=== PATIENT | male | born 1995 | race American Indian/Alaskan Native ===

== ENCOUNTER 2020-03-07 21:35 | Emergency (ER) | payer OTHER ==
[2020-03-07 22:06] VITALS: BP 136/58
[2020-03-07 22:28] LABS: Bilirubin,Urine NEG (Negative); Blood,Urine SM (Negative); Color,Urine Yellow (Yellow); Mucus,Urine 3+ /HPF
[2020-03-07] MEDS ORDERED: LIDOCAINE-MPF (1%) 10 MG/1 ML VIAL 5 ML INFILTRATI ONE (22:38)
[2020-03-07] MEDS ORDERED: AZITHROMYCIN 250 MG TAB PO ONE (22:38)
--- NOTE | 2020-03-07 22:45 | Emergency Department Report ---
ED General Adult HPI - General Chief complaint: Urogenital-Male Stated complaint: BURNING WHEN URINATING Time Seen by Provider: 03/07/20 22:20 Source: patient Mode of arrival: Ambulatory Limitations: No Limitations - History of Present Illness Initial comments: 24-year-old male present with chief complaint of dysuria, onset today. He believes he has an STI as he has had one before. Denies any penile discharge, abdominal pain, flank pain or any other symptoms. Onset gradual, mild severity, no modifying factors - Related Data Allergies Allergy/AdvReac Type Severity Reaction Status Date / Time No Known Allergies Allergy Unverified 03/07/20 21:58 ED Review of Systems ROS: Stated complaint: BURNING WHEN URINATING Other details as noted in HPI Comment: All other systems reviewed and negative Genitourinary: as per HPI ED Past Medical Hx - Past Medical History Previous Medical History?: No - Surgical History Past Surgical History?: No - Social History Smoking Status: Never Smoker Substance Use Type: None ED Physical Exam - General Limitations: No Limitations General appearance: alert, in no apparent distress - Head Head exam: Present: atraumatic, normocephalic - Eye Eye exam: Present: normal appearance, PERRL, EOMI - ENT ENT exam: Present: normal exam, normal orophraynx - Neck Neck exam: Present: normal inspection, full ROM - GI/Abdominal GI/Abdominal exam: Present: soft. Absent: distended, tenderness, guarding - Extremities Exam Extremities exam: Present: normal inspection, full ROM - Back Exam Back exam: Absent: CVA tenderness (R), CVA tenderness (L) - Neurological Exam Neurological exam: Present: alert, oriented X3, normal gait - Psychiatric Psychiatric exam: Present: normal affect, normal mood - Skin Skin exam: Present: warm, dry, intact, normal color ED Course Vital Signs 03/07/20 21:59 Temperature 98.6 F Pulse Rate 72 Respiratory 16 Rate Blood Pressure 136/58 O2 Sat by Pulse 98 Oximetry ED Medical Decision Making - Medical Decision Making Patient presenting with concerns of STI. Urinalysis will be sent. He will be treated empirically with Rocephin and azithromycin and referred for PCP follow- up. - Differential Diagnosis UTI, STI Critical care attestation.: If time is entered above; I have spent that time in minutes in the direct care of this critically ill patient, excluding procedure time. ED Disposition Clinical Impression: Urethritis Disposition: DC-01 TO HOME OR SELFCARE Is pt being admited?: No Condition: Good Instructions: Urethritis, Adult Referrals: DIONISIO BOLDEN MD [Staff Physician] - 3-5 Days Forms: STI Treatment and Prevention Time of Disposition: 22:45
== END 2020-03-08 00:15 | disposition home or self-care (01) ==
LOC: ED 21:35
DX: N34.2 Other urethritis (principal)
CPT/HCPCS: 81001; 87591; 96372; 99283; J0696